=== PATIENT | female | born 1975 | race Caucasian/White ===

== ENCOUNTER 2018-03-06 17:33 | Emergency (ER) | payer OTHER ==
[~2018-03-06] VITALS: Ht 162.6 cm; Wt 79.3 kg
[2018-03-06 17:43] VITALS: BP 124/85
[2018-03-06] MEDS ORDERED: OXYcodone/APAP 5/325MG TABLET PO ONE (18:00)
[2018-03-06] MEDS ORDERED: ONDANSETRON ODT 4 MG PO ONE (18:00)
[2018-03-06] MEDS ORDERED: OXYcodone/APAP 5/325MG TABLET ONE (18:04)
[2018-03-06] MEDS ORDERED: ONDANSETRON ODT 4 MG ONE (18:04)
--- NOTE | 2018-03-06 18:06 | NUR ---
PT DENIES NAUSEA, REQ TO HOLD OFF ON ZOFRAN AT THIS TIME
== END 2018-03-06 19:09 | disposition home or self-care (01) ==
LOC: ED 19:02
DX: S50.11XA Contusion of right forearm, initial encounter (principal); X58.XXXA Exposure to other specified factors, initial encounter; Y93.89 Activity, other specified; Y92.69 Other specified industrial and construction area as the place of occurrence of the external cause; Y99.0 Civilian activity done for income or pay
CPT/HCPCS: 29105; 99283